=== PATIENT | male | born 1960 | race Caucasian/White ===

== ENCOUNTER 2019-05-19 10:30 | Emergency (ER) | payer OTHER, MEDICAID ==
[~2019-05-19] VITALS: Ht 182.9 cm; Wt 88.0 kg
[2019-05-19] MEDS ORDERED: METFORMIN HCL500 M3 PO (10:33)
[2019-05-19] MEDS ORDERED: NEURONTIN100 MG PO (10:34)
[2019-05-19] MEDS ORDERED: LISINOPRIL2.5 MG PO (10:34)
[2019-05-19] MEDS ORDERED: ALLOPURINOL 10100 M3 PO (10:36)
[2019-05-19] MEDS ORDERED: LIPITOR10 MG PO (10:36)
[2019-05-19] MEDS ORDERED: MEDROLDOSEPACK PO (11:12)
[2019-05-19 11:53] VITALS: BP 106/68
== END 2019-05-19 11:53 | disposition home or self-care (01) ==
LOC: M.ERS 10:30
DX: G89.29 Other chronic pain (principal); M25.561 Pain in right knee; M25.562 Pain in left knee; M25.511 Pain in right shoulder; M25.512 Pain in left shoulder; I10 Essential (primary) hypertension; E11.9 Type 2 diabetes mellitus without complications; M10.9 Gout, unspecified; Z96.652 Presence of left artificial knee joint

== ENCOUNTER 2019-06-06 10:03 | Emergency (ER) | payer OTHER, MEDICAID ==
[~2019-06-06] VITALS: Ht 190.5 cm; Wt 86.2 kg
[~2019-06-06 10:03] MED LIST: ALLOPURINOL 10100 M3 PO; LIPITOR10 MG PO; LISINOPRIL2.5 MG PO; MEDROLDOSEPACK PO; METFORMIN HCL500 M3 PO; NEURONTIN100 MG PO
[2019-06-06] MEDS ORDERED: INDOMETHACIN 5050 M1 PO (10:29)
[2019-06-06] MEDS ORDERED: NORCO 5-325 TA1 EAC1 PO (10:29)
[2019-06-06] MEDS ORDERED: PREDNISONE 10 M10 MG PO (10:29)
[2019-06-06 10:49] VITALS: BP 126/90
== END 2019-06-06 10:55 | disposition home or self-care (01) ==
LOC: M.ERS 10:03
DX: G89.29 Other chronic pain (principal); M25.512 Pain in left shoulder; M25.532 Pain in left wrist; M25.521 Pain in right elbow; M10.9 Gout, unspecified; I10 Essential (primary) hypertension; E78.5 Hyperlipidemia, unspecified

== ENCOUNTER → 2019-06-24 | Outpatient (CLI) | payer OTHER, MEDICAID ==
[~2019-06-24] MED LIST changes: +INDOMETHACIN 5050 M1 PO; +NORCO 5-325 TA1 EAC1 PO; +PREDNISONE 10 M10 MG PO
== END ==
LOC: M.MRI 06-19 10:32
DX: S43.432A Superior glenoid labrum lesion of left shoulder, initial encounter (principal); S43.431A Superior glenoid labrum lesion of right shoulder, initial encounter; M16.0 Bilateral primary osteoarthritis of hip; G89.29 Other chronic pain; M1A.09X0 Idiopathic chronic gout, multiple sites, without tophus (tophi); M54.16 Radiculopathy, lumbar region; M25.50 Pain in unspecified joint; R93.89 Abnormal findings on diagnostic imaging of other specified body structures; X58.XXXA Exposure to other specified factors, initial encounter; Y93.89 Activity, other specified; Y92.89 Other specified places as the place of occurrence of the external cause; Y99.8 Other external cause status

== ENCOUNTER → 2019-06-26 | Outpatient (CLI) | payer OTHER, MEDICAID | LOC: M.MRI 06-24 16:30 | DX: M51.17 Intervertebral disc disorders with radiculopathy, lumbosacral region (principal); M48.07 Spinal stenosis, lumbosacral region; M1A.09X0 Idiopathic chronic gout, multiple sites, without tophus (tophi); R93.89 Abnormal findings on diagnostic imaging of other specified body structures ==